=== PATIENT | male | born 1965 | race Caucasian/White ===

== ENCOUNTER 2019-02-12 13:17 | Emergency (ER) | payer SELFPAY ==
[~2019-02-12] VITALS: Ht 175.3 cm; Wt 76.0 kg
[2019-02-12 14:02] VITALS: BP 155/77
== END 2019-02-12 20:35 | disposition home or self-care (01) ==
LOC: ER 13:17
DX: H61.23 Impacted cerumen, bilateral (principal)
CPT/HCPCS: 82962; 99282; Z7610